=== PATIENT | female | born 2000 | race Caucasian/White ===

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

== ENCOUNTER 2024-05-21 00:41 | Observation (INO) | payer OTHER ==
[2024-05-21 02:57] LABS: BASOPHILS ABSOLUTE AUTO 0.02 K/uL (0.00-0.10); BASOPHILS PERCENT AUTO 0.1 % (0.1-1.3); EOSINOPHILS ABSOLUTE AUTO 0.15 K/uL (0.00-0.40); EOSINOPHILS PERCENT AUTO 0.9 % (0.0-5.4); HEMATOCRIT 41.1 % (34.3-46.0); HEMOGLOBIN 14.1 g/dL (11.2-15.5); IMMATURE GRAN ABSOLUTE AUTO 0.04 K/uL (0.00-0.23); IMMATURE GRAN PERCENT AUTO 0.3 % (0.0-0.7); LYMPHOCYTES ABSOLUTE AUTO 1.58 K/uL (0.8-3.3); LYMPHOCYTES PERCENT AUTO 9.9 % (11.4-47.7); MEAN CORPUSCULAR HEMOGLOBIN 29.7 pg (31.6-35.5); MEAN CORPUSCULAR HGB CONC 34.3 g/dL (31.6-35.5); MEAN CORPUSCULAR VOLUME 86.7 fL (81.4-99.0); MONOCYTES PERCENT AUTO 7.5 % (3.3-12.6); NEUTROPHILS ABSOLUTE AUTO 12.94 K/uL (1.0-7.6); NEUTROPHILS PERCENT AUTO 81.3 % (40.0-78.1); PLATELET COUNT,PLT 205 K/uL (130-375); RED BLOOD CELL COUNT 4.74 M/uL (3.77-5.24); WHITE BLOOD CELL COUNT,WBC 15.9 K/uL (3.2-11.0)
[2024-05-21] MEDS: Meropenem 500 MG in Sodium Chloride 0.9% 50 ML IV ONE (02:57)
[2024-05-21 03:00] LABS: CALCIUM 9.2 mg/dL (8.5-10.1); CREATININE 0.8 mg/dL (0.6-1.0); EST CRCL DRUG DOSING (CG) 112.21 mL/min; POTASSIUM,K 3.9 mmol/L (3.6-5.2)
[2024-05-21 03:01] LABS: ANION GAP 11.9 mmol/L (5.0-14.0)
[2024-05-21] MEDS ORDERED: Naloxone 0.4 MG/ML SDV IVPUSH PRN (04:01)
[2024-05-21] MEDS ORDERED: Ondansetron 4 MG Tab.DIS PO PRN (04:01)
[2024-05-21] MEDS ORDERED: Albuterol 0.083% 2.5 MG/3 ML Neb Soln NEB PRN (04:01)
[2024-05-21] MEDS ORDERED: Sennosides/Docusate Sodium 50-8.6 MG Tab PO PRN (04:01)
[2024-05-21] MEDS ORDERED: Melatonin 3 MG Tab PO PRN (04:01)
[2024-05-21] MEDS: Sodium Chloride 0.9% 1,000 ML IV SCH (04:08)
[2024-05-21] MEDS: Ondansetron 4 MG/2 ML SDV IV PRN (04:48)
[2024-05-21] MEDS: HYDROmorphone 0.5 MG/0.5 ML Syringe IVPUSH PRN (04:51)
[2024-05-21] MEDS ORDERED: Meropenem 500 MG in Sodium Chloride 0.9% 50 ML IV SCH (08:00)
[2024-05-21] MEDS ORDERED: Neostigmine Methylsulfate 10 MG/10 ML MDV ONE (08:42)
[2024-05-21] MEDS ORDERED: Succinylcholine 200 MG/10 ML MDV ONE (08:42)
[2024-05-21] MEDS ORDERED: Ondansetron 4 MG/2 ML SDV ONE (08:42)
[2024-05-21] MEDS ORDERED: fentaNYL 250 MCG/5 ML SDV ONE (08:42)
[2024-05-21] MEDS ORDERED: Glycopyrrolate 0.2 MG/ML 5 ML MDV ONE (08:42)
[2024-05-21] MEDS ORDERED: Rocuronium 50 MG/5 ML Vial ONE (08:42)
[2024-05-21] MEDS ORDERED: Propofol 200 MG/20 ML SDV ONE (08:42)
[2024-05-21] MEDS ORDERED: Dexamethasone 4 MG/ML SDV ONE (08:42)
[2024-05-21] MEDS: Meropenem 500 MG in Sodium Chloride 0.9% 50 ML IV SCH (08:54)
[2024-05-21] MEDS: Scopalamine 1mg/3day Transdermal Patch TOP ONE (09:47)
[2024-05-21] MEDS ORDERED: Lactated Ringers 1,000 ML ONE (11:36)
[2024-05-21] MEDS: Bupivacaine 0.25%/EPINEPHrine 1:200,000 30 ML SDV ONE (12:15)
[2024-05-21] MEDS ORDERED: Sugammadex Sodium 200 MG/2 ML VIAL IV ONE (12:17)
[2024-05-21] MEDS: Acetaminophen 325 MG Tab PO PRN (13:50)
[2024-05-21 14:38] VITALS: PULSE 89
[2024-05-21 17:09] VITALS: BP 113/72
[2024-05-22] MEDS ORDERED: VERIFY SCOP PATCH TOP SCH (09:00)
== END 2024-05-21 16:55 | disposition home or self-care (01) ==
LOC: JP.ED 00:41 → JP.MS 03:07
PROVIDERS: ADMIT Registered Nurse; ATTEND Hospitalist
DX: K35.30 Acute appendicitis with localized peritonitis, without perforation or gangrene (principal); J45.909 Unspecified asthma, uncomplicated; F41.9 Anxiety disorder, unspecified; Z79.899 Other long term (current) drug therapy; Z88.0 Allergy status to penicillin; Z88.8 Allergy status to other drugs, medicaments and biological substances
CPT/HCPCS: 00840; 36415; 44970; 74176; 80048; 84703; 85025; 88304; 96361; 96374; 96375; 96376; 99238; 99285; A9270; G0378; J0330; J1100; J1596; J2185; J2405; J2704; J2710; J3010; J7030; J7120; J3490